=== PATIENT | female | born 1970 | race American Indian/Alaskan Native ===

== ENCOUNTER 2022-02-15 01:15 | Emergency (ER) | payer MEDICARE ==
[2022-02-15] MEDS ORDERED: ONDANSETRON 4 MG/2 ML INJ IV ONE (01:35)
[2022-02-15] MEDS ORDERED: MORPHINE 4 MG/1 ML INJ IV ONE (01:35)
--- NOTE | 2022-02-15 01:35 | Emergency Department Report ---
Upper Extremity - HPI Chief Complaint: Extremity Injury, Upper Stated Complaint: RT SHOULDER INJURY Time Seen by Provider: 02/15/22 01:30 Upper Extremity: Right Shoulder Occurred When: Today Mechanism: Twist Severity: severe Symptoms: Yes Pain with Movement, Yes Deformity, Yes Limited Range of Movement, No Numbness, No Weakness, No Swelling, No Bruising/Ecchymosis, No Laceration or Abrasion Other History: This patient is a 51-year-old female, who is right-hand dominant, presenting to the ER today with a complaint of accidental right-sided shoulder dislocation. She has not eaten anything since 11:30 AM yesterday. Patient complains of sharp throbbing right-sided shoulder pain, which increases with palpation and decreases with rest. No weakness. No numbness. Reports that she accidentally turned over in bed, and believes that she accidentally dislocated her shoulder. ED Review of Systems ROS: Stated complaint: RT SHOULDER INJURY Other details as noted in HPI Constitutional: fever, malaise (Chronic) Respiratory: denies: shortness of breath Cardiovascular: edema (Chronic) Gastrointestinal: denies: abdominal pain, melena, hematochezia Musculoskeletal: back pain, joint swelling, arthralgia, myalgia Neurological: weakness (Chronic and generalized) Upper Extremity Exam - Exam General: Vital signs noted. Patient is alert and acting appropriately. She is mildly distressed. No facial droop. Tongue midline. Extraocular movements intact bilaterally. Facial sensation intact to light touch in V1, V2, V3 distribution bilaterally. 5 and a 5 strength in 4 extremities. Sensation intact to light touch in 4 extremities. 2+ pulses noted in the bilateral upper and lower extremities. There is no long bony tenderness. The muscular compartments are soft. The right shoulder is tender proximally. Sensation is intact to light touch in the deltoid, median, radial, and ulnar distribution. There is chronic bilateral lower extremity swelling. Head and Torso: No HEENT Abnormality, No Neck Tenderness, No Chest/Lungs Ab normality, No Abdominal Tenderness, No Back Tenderness Shoulder Exam: Yes Shoulder Tenderness (Right shoulder), No Clavicle Tenderness, No Normal Range of Motion in Shoulder (Normal range of motion left shoulder. Right shoulder is), No Shoulder Deformity, No AC Joint Tenderness Arm Exam: No Arm/Humerus Tenderness, No Arm Deformity Elbow: Yes Normal Range of Motion in Elbow, No Elbow Tenderness, No Elbow Deformity Forearm: No Forearm Tenderness, No Forearm Deformity, No Pain with Pronation, No Pain with Supination Wrist: Yes Normal ROM in Wrist, No Wrist Tenderness, No Wrist Deformity, No Snuffbox Tenderness, No Pain with Axial Thumb Compression Hand: Yes Normal ROM in Digit(s), No Hand Tenderness, No Hand Deformity, No Digit Tenderness, No Digit(s) Deformity, No Tendon Dysfunction CMS Exam: Yes Normal Distal Pulses, Yes Normal Capillary Refill, Yes Normal Distal Sensation, No Broken Skin ED Course Vital Signs 02/15/22 01:19 Temperature 98.0 F Pulse Rate 103 H Respiratory 20 Rate Blood Pressure 138/78 O2 Sat by Pulse 98 Oximetry - Reevaluation(s) Reevaluation #1: 02/15/22 03:12 Heart rate 93 bpm. Feels completely improved. Return precautions are reviewed. All questions answered. Repeat neurovascular exam is unremarkable and unchanged. - Moderate Sedation Indications: fracture/dislocation redu Presedation Evaluation: Patient has been n.p.o. for essentially 12 hours. Her past medical history is complex, including lupus, multiple myeloma, currently on systemic anticoagulation, chronic pain, debility, and arthritis. She reports no known issues with anesthesia. Offered patient multiple options for shoulder reduction, including moderate sedation with closed reduction, versus intra-articular block, with having patients laying prone, with right shoulder/arm hanging over the stretcher. Risks, benefits and alternatives discussed with H. Patient elects for moderate sedation with closed reduction. She provides verbal informed consent, and request that her signed a written informed consent. ASA Class: III Mallampati Airway Score: 1 Preparation: monitoring tech applied, pulse oximeter, capnometry used, supplemental O2 applied, suction/airway equipment at bedside Ketamine: IV Ketamine Dose: 50 IV Propofol Dose (mgs): 30 Complications: none Patient Tolerated Procedure: well Additional Comments: A timeout is performed. Two factor patient identification is utilized to identify correct patient, correct procedure, and correct laterality. All parties agree that patient is correct for moderate sedation with closed reduction. Sedation time started at 2: 13, and ended at 2: 18. - Orthopedic Joint Reduction Joint #1 Consent Obtained: verbal consent, written consent, emergent situation Time Out Performed: Yes Side: right Joint Reduction Location: shoulder Analgesia: moderate sedation Technique Used: direct manipulation Post-Reduction Neuro Exam: intact Post-Reduction Vascular Exam: intact Post Reduction X-Ray Obtained: Yes Post Reduction X-Ray Results: reduced Splint Applied: Yes Patient Tolerated Procedure: well - Orthopedic Splinting/Casting Injury #1 Side: right Upper Extremity Injury Location: shoulder Upper Extremity Immobilizer: sling/shoulder immobilize - Pulse Oximetry Interpretation Digit-Finger Initial Pulse Oximetry Readin O2 Sat by Pulse Oximetry: 99 Actions Taken: none ED Medical Decision Making - Lab Data Vital Signs 02/15/22 01:19 Temperature 98.0 F Pulse Rate 103 H Respiratory 20 Rate Blood Pressure 138/78 O2 Sat by Pulse 98 Oximetry - Radiology Data Radiology results: pending, report reviewed, image reviewed RIGHT SHOULDER 3 VIEW(S) INDICATION / CLINICAL INFORMATION: INJURY. COMPARISON: None available. FINDINGS: BONES / JOINT(S): The humerus is d islocated anteriorly with respect to glenoid. No significant arthritis. SOFT TISSUES: No significant abnormality. ADDITIONAL FINDINGS: None. IMPRESSION: 1. Right anterior shoulder dislocation. Signer Name: Osbaldo Siegel MD Signed: 02/15/2022 1:01 AM Workstation Name: [id number] RIGHT SHOULDER 1 VIEW(S) 2:26 AM INDICATION / CLINICAL INFORMATION: right shoulder reduction. COMPARISON: 1:37 AM FINDINGS: BONES / JOINT(S): Interval reduction of previously noted anterior shoulder dislocation. No acute fracture. No significant arthritis. SOFT TISSUES: No significant abnormality. ADDITIONAL FINDINGS: Old healed right rib fracture deformities. IMPRESSION: 1. Reduction of previously noted right anterior shoulder dislocation Signer Name: Osbaldo Siegel MD Signed: 02/15/2022 2:03 AM Workstation Name: [id number] - Medical Decision Making Differential diagnosis, including but not limited to: Right-sided shoulder dislocation Assessment and plan: 51-year-old female presenting with right-sided shoulder dislocation. She is neurovascularly intact. She has no additional injuries. She did not fall or hit her head; this injury happened while she was in bed. She and her provided verbal and written informed consent for moderate sedation with closed reduction, after careful consideration of risks, benefits and alternatives. Patient received moderate sedation, with close reduction of the right shoulder. Right shoulder sling is applied. The patient recovered without incident. Post procedure x-ray demonstrates appropriate reduction. The patient currently takes systemic anticoagulation, and is therefore not an NSAID candidate. The patient has a pain specialist, who prescribes her chronic opioid maintenance therapy. Patient counseled to continue her current outpatient chronic pain medications, she will need to follow-up with an outpatient orthopedic physician for her right-sided shoulder dislocation. She is observed in this ER for hours without clinical decompensation. All questions were answered. Return precautions are reviewed Critical care attestation.: If time is entered above; I have spent that time in minutes in the direct care of this critically ill patient, excluding procedure time. ED Disposition Clinical Impression: Dislocation of right shoulder joint Qualifiers: Encounter type: initial encounter Qualified Code(s): S43.004A - Unspecified dislocation of right shoulder joint, initial encounter Disposition: HOME / SELF CARE / HOMELESS Is pt being admited?: No Does the pt Need Aspirin: No Condition: Good Instructions: Moderate Conscious Sedation, Adult, Shoulder Dislocation, [id number] Additional Instructions: Please keep the shoulder immobilizer in place. Please follow-up with an outpatient orthopedist within the next 3 to 5 days. The patient has been provided a list of outpatient orthopedic physicians. Please continue current outpatient pain medications as prescribed by your pain specialist. Pain typically gets worse before gets better after a shoulder dislocation. Avoid heavy lifting and strenuous physical activities. Use the right hand and wrist as tolerated for physical activity. Please return to the emergency room right away with new pain, worsened pain, migration of pain, projectile vomiting, change in mental status, confusion, inability tolerate liquid feeds, new, worsened or different symptoms not present on the initial emergency room evaluation Referrals: [facility] [Provider Group] - 3-5 Days CAROL SMYTH MD [Staff Physician] - 3-5 Days Forms: Work/School Release Form(ED)
[2022-02-15] MEDS ORDERED: KETAMINE 500 MG/5 ML VIAL MDV IV ONE ×2 (01:50→02:21)
[2022-02-15] MEDS ORDERED: propofoL 200 MG/20 ML VIAL IV ONE ×2 (01:50→02:20)
[2022-02-15] MEDS ORDERED: SODIUM CHLORIDE 0.9% 1000 ML 1,000 ML ONE (02:03)
--- NOTE | 2022-02-15 02:06 | XRay Report ---
RIGHT SHOULDER 3 VIEW(S) INDICATION / CLINICAL INFORMATION: INJURY. COMPARISON: None available. FINDINGS: BONES / JOINT(S): The humerus is dislocated anteriorly with respect to glenoid. No significant arthri tis. SOFT TISSUES: No significant abnormality. ADDITIONAL FINDINGS: None. IMPRESSION: 1. Right anterior shoulder dislocation. Signer Name: Osbaldo Siegel MD Signed: 02/15/2022 2:01 AM Workstation Name: [id number]
--- NOTE | 2022-02-15 03:08 | XRay Report ---
RIGHT SHOULDER 1 VIEW(S) 2:26 AM INDICATION / CLINICAL INFORMATION: right shoulder reduction. COMPARISON: 1:37 AM FINDINGS: BONES / JOINT(S): Interval reduction of previously noted anterior shoulder dislocation. No acute frac ture. No significant arthritis. SOFT TISSUES: No significant abnormality. ADDITIONAL FINDINGS: Old healed right rib fracture deformities. IMPRESSION: 1. Reduction of previously noted right anterior shoulder dislocation Signer Name: Osbaldo Siegel MD Signed: 02/15/2022 3:03 AM Workstation Name: [id number]
[2022-02-15 04:04] VITALS: BP 172/106
== END 2022-02-15 04:03 | disposition home or self-care (01) ==
LOC: ED 01:15
DX: S43.004A Unspecified dislocation of right shoulder joint, initial encounter (principal); X58.XXXA Exposure to other specified factors, initial encounter; Y93.89 Activity, other specified; Y92.89 Other specified places as the place of occurrence of the external cause; Y99.8 Other external cause status
CPT/HCPCS: 23650; 73020; 73030; 96374; 99284; J2270; J2405; J2704; J3490; J7030; 96375; 99283

== ENCOUNTER 2022-02-21 16:20 | Emergency (ER) | payer MEDICARE ==
--- NOTE | 2022-02-21 17:26 | XRay Report ---
Right shoulder 2 views INDICATION: Right shoulder pain IMPRESSION: There is anterior dislocation of the right shoulder at the glenohumeral joint. Signer Name: Stevenson Cervantes MD Signed: 02/21/2022 5:22 PM Workstation Name: [email or web address]
[2022-02-21] MEDS ORDERED: propofoL 200 MG/20 ML VIAL IV ONE (19:34)
[2022-02-21] MEDS ORDERED: SODIUM CHLORIDE 0.9% 1000 ML 1,000 ML IV ONE (21:34)
[2022-02-21] MEDS ORDERED: MIDAZOLAM 5 MG/5 ML INJ MDV IV ONE (21:34)
[2022-02-21] MEDS ORDERED: ETOMIDATE 20 MG/10 ML INJ IV ONE (21:34)
[2022-02-21] MEDS ORDERED: fentaNYL 100 MCG/2 ML INJ IV ONE (21:34)
--- NOTE | 2022-02-21 22:29 | Emergency Department Report ---
ED Upper Extremity Inj HPI - General Chief Complaint: Shoulder Injury Stated Complaint: DISLOCATED RT SHOULDER Time Seen by Provider: 02/21/22 19:31 Source: patient Mode of arrival: Ambulatory Limitations: No Limitations - History of Present Illness Initial Comments: Patient is 51 years old female with history of lupus arthritis. Patient presented to the ER complaining of right shoulder pain and possible dislocation. Patient stated that this is happened few hours ago when she was opening her door. Patient denied any other injuries. Patient has similar incident 5 days ago same shoulder. Patient stated that she had an appointment with her orthopedist today but she canceled it. Complaint: Injury to:: right, shoulder -: Sudden, hour(s) Other Extremity Injury: Shoulder: Right Associated Symptoms: denies other symptoms - Related Data Previous Rx's Medication Instructions Recorded Last Taken Type Naproxen [Naprosyn] 500 mg PO BID #14 tablet 02/21/22 Unknown Rx Allergies Allergy/AdvReac Type Severity Reaction Status Date / Time No Known Allergies Allergy Verified 02/21/22 16:57 ED Review of Systems ROS: Stated complaint: DISLOCATED RT SHOULDER Other details as noted in HPI Comment: All other systems reviewed and negative Constitutional: denies: chills, fever Respiratory: denies: cough, shortness of breath, SOB with exertion, SOB at rest Cardiovascular: denies: chest pain, palpitations Gastrointestinal: denies: abdominal pain, nausea, vomiting Musculoskeletal: denies: back pain Neurological: denies: headache, weakness, numbness, paresthesias, confusion ED Past Medical Hx - Past Medical History Additional medical history: LUPUS. MULTIPLE MYELOMA ON CHEMO - Medications Home Medications: Home Medications Medication Instructions Recorded Confirmed Last Taken Type Naproxen [Naprosyn] 500 mg PO BID #14 tablet 02/21/22 Unknown Rx ED Physical Exam - General Limitations: No Limitations General appearance: alert, in no apparent distress - Head Head exam: Present: atraumatic, normocephalic, normal inspection - Eye Eye exam: Present: normal appearance - ENT ENT exam: Present: normal exam, normal orophraynx, mucous membranes moist - Neck Neck exam: Present: normal inspection, full ROM. Absent: tenderness, meningismus - Respiratory Respiratory exam: Present: normal lung sounds bilaterally - Cardiovascular Cardiovascular Exam: Present: regular rate, normal rhythm, normal heart sounds - GI/Abdominal GI/Abdominal exam: Present: soft, normal bowel sounds. Absent: distended, tenderness, guarding, rebound, rigid - Expanded Upper Extremity Exam Right Shoulder Exam: Present: tenderness, dislocation. Absent: swelling, abrasion, laceration, ecchymosis Upper Arm exam: Present: normal inspection, full ROM Vascular: Present: normal capillary refill - Back Exam Back exam: Present: normal inspection, full ROM. Absent: CVA tenderness (R), CVA tenderness (L) - Neurological Exam Neurological exam: Present: alert, oriented X3, CN II-XII intact - Psychiatric Psychiatric exam: Present: normal mood - Skin Skin exam: Present: warm, intact, normal color ED Course Vital Signs 02/21/22 02/21/22 02/21/22 16:55 20:51 21:01 Temperature 98.3 F Pulse Rate 97 H 81 86 Respiratory 18 15 15 Rate Blood Pressure 122/76 99/72 Blood Pressure [Right] O2 Sat by Pulse 97 Oximetry 02/21/22 02/21/22 02/21/22 21:15 21:31 21:45 Temperature Pulse Rate 84 87 84 Respiratory 14 17 15 Rate Blood Pressure 99/72 135/93 135/93 Blood Pressure [Right] O2 Sat by Pulse Oximetry 02/21/22 02/21/22 02/21/22 22:01 22:15 22:31 Temperature Pulse Rate 84 88 95 H Respiratory 13 14 22 Rate Blood Pressure 155/93 155/93 168/96 Blood Pressure [Right] O2 Sat by Pulse 61 L Oximetry 02/21/22 02/21/22 02/21/22 22:45 23:01 23:15 Temperature Pulse Rate 85 84 82 Respiratory 16 25 H 14 Rate Blood Pressure 168/96 160/97 160/97 Blood Pressure [Right] O2 Sat by Pulse 66 L Oximetry 02/21/22 02/21/22 02/21/22 23:31 23:40 23:45 Temperature Pulse Rate 83 67 81 Respiratory 22 18 16 Rate Blood Pressure 160/97 150/96 Blood Pressure [Right] O2 Sat by Pulse Oximetry 02/21/22 02/21/22 02/22/22 23:54 23:55 00:01 Temperature 98.9 F Pulse Rate 52 L Respiratory 16 Rate Blood Pressure 161/101 161/101 Blood Pressure 161/101 [Right] O2 Sat by Pulse 100 100 Oximetry 02/22/22 02/22/2202/22/22 00:15 00:31 00:45 Temperature Pulse Rate Respiratory Rate Blood Pressure 161/101 136/79 136/79 Blood Pressure [Right] O2 Sat by Pulse 97 100 99 Oximetry 02/22/22 02/22/22 02/22/22 00:49 01:01 01:15 Temperature Pulse Rate Respiratory Rate Blood Pressure 139/67 139/67 Blood Pressure [Right] O2 Sat by Pulse 96 98 94 Oximetry 02/22/22 02/22/22 01:31 01:45 Temperature Pulse Rate Respiratory Rate Blood Pressure 152/68 152/68 Blood Pressure [Right] O2 Sat by Pulse 97 100 Oximetry - Moderate Sedation Indications: fracture/dislocation redu ASA Class: II Mallampati Airway Score: 4 Preparation: air sampling and monitoring applied, pulse oximeter, capnometry used, supplemental O2 applied, reversal agents at bedside, suction/airway equipment at bedside, IV secured Fentanyl: IV Midazolam: IV IV Etomidate Dose (mgs): 5 Complications: none Patient Tolerated Procedure: well, no complications - Orthopedic Joint Reduction Joint #1 Consent Obtained: written consent Time Out Performed: Yes Side: right Joint Reduction Location: shoulder Analgesia: moderate sedation Shoulder Technique Used (if applicable): traction/counter-traction Post-Reduction Neuro Exam: intact Post-Reduction Vascular Exam: intact Post Reduction X-Ray Obtained: Yes Post Reduction X-Ray Results: reduced Splint Applied: Yes Patient Tolerated Procedure: well, no complications ED Medical Decision Making - Radiology Data Radiology results: report reviewed - Medical Decision Making Patient is 51 years old female with history of lupus arthritis. Patient presented to the ER complaining of right shoulder pain and possible dislocation. Patient stated that this is happened few hours ago when she was opening her door. Patient denied any other injuries. Patient has similar incident 5 days ago same shoulder. Patient stated that she had an appointment with her orthopedist today but she canceled it. Right shoulder x-ray showed anterior shoulder dislocation. Using moderate sedation I was able to reduce the right shoulder. Patient tolerated procedure very well. Patient observed in the emergency room after moderate sedation. Patient discharged home, alert and oriented x3 in no acute distress. Patient is given Dr. Brown, orthopedics to follow-up with us in the next 2 to 3 days and to return to the ER if he develop any new symptoms. Critical care attestation.: If time is entered above; I have spent that time in minutes in the direct care of this critically ill patient, excluding procedure time. ED Disposition Clinical Impression: Recurrent dislocation, right shoulder Disposition: 01 HOME / SELF CARE / HOMELESS Is pt being admited?: No Condition: Stable Instructions: Recurrent Shoulder Laxity and Instability, Moderate Conscious Sedation, Adult Prescriptions: Naproxen [Naprosyn] 500 mg PO BID #14 tablet Referrals: CAROL BROWN MD [Staff Physician] - 3-5 Days
[2022-02-22] MEDS ORDERED: ETOMIDATE 20 MG/10 ML INJ IV ONE (00:21)
--- NOTE | 2022-02-22 00:57 | XRay Report ---
RIGHT SHOULDER 3 VIEW(S) INDICATION / CLINICAL INFORMATION: Post reduction.. COMPARISON: Right shoulder x-ray 02/21/2022; 1712 hours FINDINGS: Single AP view of the right shoulder demonstrates improved anatomic relationship of the right glenohu meral joint. IMPRESSION: 1. Interval reduction of previously demonstrated anterior dislocation of the right shoulder. Signer Name: Sandeep Sawyer II, MD Signed: 02/22/2022 12:53 AM Workstation Name: [id number]
[2022-02-22 01:52] VITALS: BP 152/68
== END 2022-02-22 02:23 | disposition home or self-care (01) ==
LOC: ED 16:20
DX: M24.411 Recurrent dislocation, right shoulder (principal); M32.9 Systemic lupus erythematosus, unspecified; Z85.79 Personal history of other malignant neoplasms of lymphoid, hematopoietic and related tissues
CPT/HCPCS: 23650; 73020; 73030; 96360; 99284; J2250; J3010; J3490; J7030; J2704